=== PATIENT | male | born 1970 | race Caucasian/White ===

== ENCOUNTER 2016-12-29 16:16 | Emergency (ER) | payer BC, MEDICAID ==
[2016-12-29] MEDS ORDERED: FLUCONAZOLE 100 MG TABLET PO ONE (16:52)
[2016-12-29] MEDS ORDERED: CLINDAMYCIN 600 MG/D5W RTU 50 ML IV ONE (16:53)
--- NOTE | 2016-12-29 16:57 | ER Document Report ---
ED GI/ - General Chief Complaint: Penile Problem Stated Complaint: PENIS PAIN/SWELLING Time Seen by Provider: 12/29/16 16:45 Information source: Patient Notes: Patient is a 46-year-old male with past medical history as recorded who states starting Tuesday he had some itching and irritation to the head and shaft of his penis. He states it is now swollen. He states a low-grade fever. He denies any vomiting. He denies any difficulty with urination. He saw his primary care physician yesterday and was started on Flagyl, Keflex, and antifungal cream. Patient states he had a similar presentation around one year ago that resolved with Diflucan tablets and antibiotics. Patient states the swelling last year was worse than this year. TRAVEL OUTSIDE OF THE [place] IN LAST 30 DAYS: No - HPI Patient complains to provider of: Other - See above Onset: Other - See above Timing/Duration: Gradual Quality of pain: Achy, Burning Severity at maximum: Moderate Severity in ED: Mild Pain Level: 1 Location: Other - See above Sexual history: Active Associated symptoms: Other - See above Exacerbated by: Denies Relieved by: Denies Similar symptoms previously: Yes Recently seen / treated by doctor: Yes - Related Data Allergies/Adverse Reactions: No Known Allergies Allergy (Unverified 01/22/16 18:31) Past Medical History - General Information source: Patient Cannot obtain history due to: Other - Social History Smoking Status: Unknown if Ever Smoked Cigarette use (# per day): No Chew tobacco use (# tins/day): No Smoking Education Provided: No Frequency of alcohol use: None Family History: Reviewed & Not Pertinent Patient has suicidal ideation: No Patient has homicidal ideation: No - Past Medical History Cardiac Medical History: Reports: Hx Hypertension Endocrine Medical History: Reports: Hx Diabetes Mellitus Type 2 Renal/ Medical History: Denies: Hx Peritoneal Dialysis Review of Systems - Review of Systems Gastrointestinal: denies: Abdominal pain, Diarrhea, Nausea Genitourinary: denies: Dysuria, Flank pain Musculoskeletal: denies: Back pain -: Yes All other systems reviewed and negative Physical Exam - Vital signs Vitals: Pulse BP Pulse Ox 82 138/101 H 96 12/29/16 16:33 12/29/16 16:33 12/29/16 16:33 Notes: Reviewed vital signs and nursing note as charted by RN. CONSTITUTIONAL: Alert and oriented and responds appropriately to questions. Well -appearing; well-nourished HEAD: Normocephalic; atraumatic CARD: Regular rate and rhythm; no murmurs, no clicks, no rubs, no gallops; symmetric distal pulses RESP: Normal chest excursion without splinting or tachypnea; breath sounds clear and equal bilaterally; no wheezes, no rhonchi, no rales ABD/GI: Normal bowel sounds; non-distended; soft, non-tender to deep palpation of all 4 quadrants of the abdomen GI/: Patient has some swelling and edema to the penile shaft. Patient has no testicular pain, swelling, inguinal perineal erythema or induration. BACK: The back appears normal and is non-tender to palpation, there is no CVA tenderness EXT: Normal ROM in all joints; non-tender to palpation; no cyanosis, no effusions, no edema SKIN: Normal color for age and race; warm; dry; good turgor; capillary refill < 2 seconds; no acute lesions noted NEURO: Moves all extremities equally; Motor and sensory function intact PSYCH: The patient's mood and manner are appropriate. Grooming and personal hygiene are appropriate. Course - Re-evaluation Re-evalutation: 12/29/16 16:56 Given the above history and physical examination I been extremely low pretest probability for necrotizing fasciitis. I believe that the patient requires Diflucan, different antibiotics, and urology follow-up. I will provide a Diflucan tablet of the clindamycin injection here at this time. I will also obtain basic labs, blood cultures, check the patient's creatinine level. 12/29/16 18:20 White count as recorded. Chemistry as recorded. Blood sugar 182. Antibiotics and Diflucan have been provided. Patient will be discharged home with strict return precautions, urology follow-up, and to change the antibiotic regimen. No change in examination. Patient still denies urinary obstruction. - Vital Signs Vital signs: Temp Pulse Resp BP Pulse Ox 99.9 F 82 20 138/101 H 96 12/29/16 16:36 12/29/16 16:33 12/29/16 17:15 12/29/16 16:33 12/29/16 16:33 - Laboratory Result Diagrams: 12/29/16 17:20 12/29/16 17:20 Laboratory results interpreted by me: 12/29/16 12/29/16 17:20 17:20 RBC 5.71 H RDW 14.3 H Glucose 182 H Discharge - Discharge Clinical Impression: Balanitis Condition: Good Disposition: HOME, SELF-CARE Additional Instructions: Come back immediately with any increased swelling, pain, redness to the groin, fevers, vomiting, inability to urinate, or any other acute problems. Make sure that you follow-up with the primary care physician, the urologist, and return here in 24-48 hours for recheck. Prescriptions: Clindamycin HCl [Cleocin 300 mg Capsule] 300 mg PO QID #40 capsule Fluconazole [Diflucan 100 Mg Tablet] 150 mg PO DAILY #6 tablet Referrals: ANGEL TRUONG [Primary Care Provider] - Follow up as needed LUIS FERNANDO LOPEZ MD [[facility]] - Follow up as needed
[2016-12-29 17:37] LABS: ABSOLUTE BASOPHILS # (AUTO) 0.1 10^3/uL (0.0-0.2); ABSOLUTE EOSINOPHILS # (AUTO) 0.2 10^3/uL (0.0-0.6); ABSOLUTE LYMPHOCYTES (AUTO) 1.4 10^3/uL (0.5-4.7); ABSOLUTE MONOCYTES (AUTO) 0.7 10^3/uL (0.1-1.4); ABSOLUTE NEUT (AUTO) 3.9 10^3/uL (1.7-8.2); EOSINOPHILS % (AUTO) 2.4 % (0-6); HEMATOCRIT 48.3 % (37.9-51.0); HEMOGLOBIN 15.9 g/dL (13.5-17.0); HGB HCT DIFFERENCE -0.6; LYMPHOCYTES % (AUTO) 22.4 % (13-45); MEAN CORPUSCULAR HEMOGLOBIN 27.8 pg (27.0-33.4); MEAN CORPUSCULAR HGB CONC 32.9 g/dL (32.0-36.0); MEAN CORPUSCULAR VOLUME 85 fl (80-97); MONOCYTES % (AUTO) 10.8 % (3-13); RED BLOOD COUNT 5.71 10^6/uL (4.35-5.55); RED CELL DISTRIBUTION WIDTH 14.3 % (11.5-14.0); SEGMENTED NEUTROPHILS % (AUTO) 63.4 % (42-78); WHITE BLOOD COUNT 6.2 10^3/uL (4.0-10.5)
[2016-12-29 18:00] LABS: ANION GAP 13 (5-19); BLOOD UREA NITROGEN 18 mg/dL (7-20); CALCIUM 10.1 mg/dL (8.4-10.2); CARBON DIOXIDE 28 mmol/L (22-30); CHLORIDE 99 mmol/L (98-107); CREATININE RESULT 0.74 mg/dL (0.52-1.25); GLUCOSE 182 mg/dL (75-110); POTASSIUM 4.2 mmol/L (3.6-5.0); SODIUM 139.8 mmol/L (137-145)
[2016-12-29 19:12] VITALS: BP 138/94
[2016-12-29 19:13] LABS: APPEARANCE,URINE CLEAR; BILIRUBIN,URINE NEGATIVE (NEGATIVE); GLUCOSE, URINE >=500 mg/dL (NEGATIVE); KETONES,URINE NEGATIVE (NEGATIVE); LEUKOCYTE ESTERASE,URINE TRACE (NEGATIVE); NITRITE,URINE NEGATIVE (NEGATIVE); PROTEIN,URINE NEGATIVE (NEGATIVE); URINE SPECIFIC GRAVITY 1.025; UROBILINOGEN,URINE NEGATIVE mg/dL (<2.0)
== END 2016-12-29 19:12 | disposition home or self-care (01) ==
LOC: ER 16:16
DX: N48.1 Balanitis (principal); E11.9 Type 2 diabetes mellitus without complications; I10 Essential (primary) hypertension
CPT/HCPCS: 36415; 80048; 81001; 85025; 87040; 87086; 96365; 99283